=== PATIENT | male | born 1965 | race Caucasian/White ===

== ENCOUNTER 2017-05-04 12:14 | Emergency (ER) | payer SELFPAY ==
[2017-05-04] MEDS ORDERED: Ketorolac Tromethamine 60 MG/2 ML VIAL ONE (13:19)
== END 2017-05-04 13:21 | disposition home or self-care (01) ==
LOC: MADERS 12:14
DX: M54.2 Cervicalgia (principal); I10 Essential (primary) hypertension; F17.210 Nicotine dependence, cigarettes, uncomplicated
CPT/HCPCS: 96372; J1885

== ENCOUNTER 2018-09-30 23:20 | Emergency (ER) | payer OTHER, SELFPAY ==
[2018-10-01] MEDS ORDERED: Cephalexin 500 MG CAP ONE (00:07)
[2018-10-01] MEDS ORDERED: Sulfameth/Trimethoprim DS 800-160mg TAB ONE (00:07)
[2018-10-01] MEDS ORDERED: predniSONE 20 MG TAB ONE (00:07)
== END 2018-10-01 00:12 | disposition home or self-care (01) ==
LOC: MADERS 23:20
DX: L03.115 Cellulitis of right lower limb (principal); F17.210 Nicotine dependence, cigarettes, uncomplicated; I10 Essential (primary) hypertension; Z79.82 Long term (current) use of aspirin; Z79.899 Other long term (current) drug therapy
CPT/HCPCS: 99282

== ENCOUNTER 2021-03-20 19:34 | Emergency (ER) | payer OTHER, SELFPAY ==
[2021-03-20] MEDS ORDERED: Acetaminophen 500 MG TAB ONE (21:40)
== END 2021-03-20 22:20 | disposition home or self-care (01) ==
LOC: MADERS 19:34
DX: S63.501A Unspecified sprain of right wrist, initial encounter (principal); S43.402A Unspecified sprain of left shoulder joint, initial encounter; I10 Essential (primary) hypertension; F17.210 Nicotine dependence, cigarettes, uncomplicated; V43.52XA Car driver injured in collision with other type car in traffic accident, initial encounter; Y92.411 Interstate highway as the place of occurrence of the external cause

== ENCOUNTER 2021-05-13 13:38 | Emergency (ER) | payer SELFPAY ==
[2021-05-13] MEDS ORDERED: predniSONE 20 MG TAB ONE (15:11)
[2021-05-13] MEDS ORDERED: Azithromycin 250 MG TAB ONE (16:09)
[2021-05-14 00:09] LABS: SARS-CoV-2 PCR by NAA Not Detected (NotDetected)
== END 2021-05-13 16:27 | disposition home or self-care (01) ==
LOC: MADERS 13:38
DX: J44.1 Chronic obstructive pulmonary disease with (acute) exacerbation (principal); I10 Essential (primary) hypertension; F17.210 Nicotine dependence, cigarettes, uncomplicated; Z20.822 Contact with and (suspected) exposure to COVID-19
CPT/HCPCS: 71045; J7512; J7620; U0003; U0005

== ENCOUNTER 2022-08-03 19:13 | Emergency (ER) | payer SELFPAY ==
[2022-08-03] MEDS ORDERED: Acetaminophen 325 MG TAB ONE (20:18)
[2022-08-03] MEDS ORDERED: HYDROcodone/Acetaminophen 5/325 mg Tablet ONE (20:18)
== END 2022-08-03 20:29 | disposition home or self-care (01) ==
LOC: MADERS 19:13
DX: S93.601A Unspecified sprain of right foot, initial encounter (principal); J44.9 Chronic obstructive pulmonary disease, unspecified; I10 Essential (primary) hypertension; F17.210 Nicotine dependence, cigarettes, uncomplicated; X50.1XXA Overexertion from prolonged static or awkward postures, initial encounter

== ENCOUNTER 2023-12-25 12:39 | Emergency (ER) | payer SELFPAY ==
[2023-12-25] MEDS ORDERED: Ipratropium/Albuterol 3 ML NEB ONE (12:48)
[2023-12-25 13:10] LABS: #Basophils 0.1 thou/uL (0.0-0.2); #Eosinphils 0.2 thou/uL (0.0-0.7); #Lymphocytes 2.8 thou/uL (1.20-3.40); #Monocytes 0.8 thou/uL (0.11-0.59); %Eosinophils 2.1 % (0.0-10.0); %Lymphocytes 25.4 % (21.0-51.0); %Monocytes 7.7 % (0.0-10.0); %Neutrophils 63.9 % (42.0-75.0); Hematocrit 58.2 % (42.0-52.0); Hemoglobin 18.2 g/dL (14.0-18.0); Mean Corpuscular HGB CONC 31.2 g/dL (32.0-36.0); Mean Corpuscular Volume 99.3 fl (78.0-98.0); Mean Platelet Volume 10.2 fL (7.4-10.4); Platelet Count 131 10x3/uL (130-400); RBC Distribution Width 12.5 % (11.5-14.5); Red Blood Cell (RBC) Count 5.86 mill/uL (4.70-6.10); White Blood Cell (WBC) Count 10.9 10x3/uL (4.8-10.8)
[2023-12-25 13:22] LABS: ALT (SGPT) 73 U/L (8-55); AST (SGOT) 47 U/L (5-34); Albumin 4.1 g/dL (3.5-5.0); Alkaline Phosphatase 79 U/L (40-110); Anion Gap 15 mmol/L (10-20); BUN (Urea Nitrogen) 9 mg/dL (8.4-25.7); Bilirubin, Total 0.7 mg/dL (0.2-1.2); Calc. Creatinine Clearance 0 mL/min (70-130); Calcium 8.7 mg/dL (7.8-10.44); Carbon Dioxide 25 mmol/L (22-29); Chloride 100 mmol/L (98-107); Estimated GFR 103; Globulin 3.6 g/dL (2.4-3.5); Glucose 118 mg/dL (70-105); Potassium 4.4 mmol/L (3.5-5.1); Protein, Total 7.7 g/dL (6.0-8.3); Sodium 136 mmol/L (136-145)
[2023-12-25 13:23] LABS: Troponin I Less than 0.010 ng/mL (< 0.028)
[2023-12-25] MEDS ORDERED: methylPREDNISolone Sod Succ/PF 125 MG/2 ML VIAL ONE (14:05)
== END 2023-12-25 14:20 | disposition home or self-care (01) ==
LOC: MADERS 12:39
DX: J44.1 Chronic obstructive pulmonary disease with (acute) exacerbation (principal); I10 Essential (primary) hypertension; F17.210 Nicotine dependence, cigarettes, uncomplicated
CPT/HCPCS: 71045; 80053; 84484; 85025; 85379; 93005; 94760; 96374; J2930; J7620

== ENCOUNTER 2024-03-29 11:03 | Emergency (ER) | payer SELFPAY | END 2024-03-29 12:08 | disposition home or self-care (01) | LOC: MADERS 11:03 | DX: B02.9 Zoster without complications (principal); I10 Essential (primary) hypertension; F17.210 Nicotine dependence, cigarettes, uncomplicated | CPT/HCPCS: 87070; 87205; 87252; 99282 ==